=== PATIENT | male | born 1995 | race Caucasian/White ===

== ENCOUNTER 2020-02-05 19:20 | Emergency (ER) | payer OTHER, SELFPAY ==
--- NOTE | ~2020-02-05 | CT_ITS ---
EXAMINATION: CT abdomen pelvis wo con DATE: 02/05/2020 20:07 INDICATION: Right flank pain TECHNIQUE: Computed tomography (CT) of the abdomen and pelvis was performed without intravenous contr ast. The dose-length product (DLP) was 212.95 mGy-cm. Automated exposure control and iterative recons truction technique were employed. COMPARISON: None FINDINGS: The lung bases are clear. The heart size is normal. The liver, spleen, pancreas, gallbladde r, and left adrenal gland are normal. Punctate calcifications of the right adrenal gland likely refle cts prior infection or trauma. The left kidney is unremarkable. There is mild right hydroureteronephr osis with a 1 mm stone seen at the right ureterovesicular junction. A 2 mm nonobstructing stone is pr esent in the right kidney. No pathologically enlarged abdominal or pelvic lymph nodes are identified. There is no free intraperitoneal gas or evidence of bowel obstruction. There is a small fat-containi ng umbilical hernia. There are bilateral L5 pars defects grade 1 anterolisthesis of L5 on S1. IMPRESSION: 1. 1 mm stone at the right ureterovesicular junction causing mild right hydroureteronephrosis. 2. Punctate right nephrolithiasis. Reviewed, dictated and finalized at location A. [employer] IMPRESSION: 1. 1 mm stone at the right ureterovesicular junction causing mild right hydrour eteronephrosis. 2. Punctate right nephrolithiasis.
[2020-02-05 19:21] VITALS: BP 149/70; PULSE 60; RESP 14; TEMP 36.2; O2SAT 100
[2020-02-05 19:39] LABS: Basophils Percent Auto 0.3 % (0.2-1.2); Eosinophils Percent Auto 0.3 % (0-4.4); Hematocrit 41.8 % (42.0-52.0); Hemoglobin 15.2 g/dL (14.0-18.0); Immature Granulocyte Absolute 0.05 K/mm3 (0.00-0.031); Immature Granulocyte Percent A 0.4 % (0-0.5); Lymphocytes Absolute Auto 2.55 K/mm3 (0.9-3.2); Lymphocytes Percent Auto 22.1 % (18.3-44.2); Mean Corpuscular HGB Conc 36.4 g/dl (32-36); Mean Corpuscular Hemoglobin 33.6 pg (26-34); Mean Corpuscular Volume 92.3 fl (80-100); Mean Platelet Volume 10.1 fl (7.4-10.4); Monocytes Absolute Auto 0.8 K/mm3 (0.1-0.6); Monocytes Percent Auto 6.8 % (2.6-8.5); Neutrophils Absolute Auto 8.1 K/mm3 (1.3-6.7); Neutrophils Percent Auto 70.1 % (45.5-73.1); Platelet Count Result 302 k/mm3 (150-375); Red Blood Count 4.53 M/mm3 (4.6-6.20); Red Cell Distribution Width 11.2 % (11.5-14.5); White Blood Count 11.5 K/mm3 (4.5-10.0)
[2020-02-05 19:50] LABS: Anion Gap 13 mmol/L (8-16); Blood Urea Nitrogen 14 mg/dL (9-20); Calcium 9.7 mg/dL (8.4-10.2); Carbon Dioxide 25 mmol/L (22-30); Chloride 102 mmol/L (98-107); Estimated CRCL calculation 74 ml/min; Estimated Glomerular Filt Rate > 60; Glucose 141 mg/dL (75-110); Potassium 3.3 mmol/L (3.4-5.0); Sodium 140 mmol/L (137-145)
[2020-02-05] MEDS: KETOROLAC 30 MG/ML VIAL (*BKC) IV PUSH (20:02)
[2020-02-05] MEDS: SODIUM CHLORIDE 0.9% IV 1,000 ML 999 ML IV CONT (20:02)
[2020-02-05] MEDS: ONDANSETRON INJ 4 MG/2 ML VIAL IV PUSH (20:02)
--- NOTE | 2020-02-05 20:39 | ED.GENADULT ---
HPI - General Adult General Chief complaint: Abdominal Pain Stated complaint: Right flank pain Time Seen by Provider: 02/05/20 19:25 History of Present Illness HPI narrative: Patient is a 24-year-old male who presents ER with sudden onset right flank pain. Radiating around into the right lower quadrant. Has urinary urgency. He is having sweats and nausea as well as vomiting. Has found no alleviating factors. Related Data Allergies Allergy/AdvReac Type Severity Reaction Status Date / Time No Known Allergies Allergy Mild Verified 08/04/10 13:59 Review of Systems Review of Systems: All systems reviewed & are unremarkable except as noted in HPI and below Constitutional: Constitutional: Denies chills, Denies fever(s) and Denies weakness Gastrointestinal: Gastrointestinal: Reports abdominal pain, Denies diarrhea, Reports nausea and Reports vomiting Genitourinary: Genitourinary: Denies hematuria, Denies dysuria and Reports urinary frequency Musculoskeletal: Musculoskeletal: Reports back pain PMFSH Past Medical History Medical History (Updated 02/05/20 @ 21:48 by Richi Guy MD) Healthy adult male Surgical History Surgical History (Updated 02/05/20 @ 20:40 by Richi Guy MD) No history of previous surgery Social History Social History (Updated 02/05/20 @ 21:47 by Richi Guy MD) Tobacco type: e-cigarettes/vaping Exam Narrative: Exam Narrative: GENERAL: Uncomfortable-appearing, well-nourished, and in mild distress. Actively vomiting HEAD: Normocephalic, atraumatic. ENT: Mucous membranes moist. CHEST: Clear to auscultation. No respiratory distress. HEART: Regular rate and rhythm. Normal peripheral pulses. ABDOMEN: Soft, nontender, nondistended. No CVA tenderness EXTREMITIES: Normal range of motion. No edema. SKIN: Warm, dry, no rash. NEURO: Alert and oriented x3. Course Course Emergency Course: Pain markedly improved with Toradol. Informed of results. Discharge home. Vital Signs Vital signs: Vital Signs Temperature 97.2 F L 02/05/20 19:21 Pulse Rate 60 02/05/20 19:21 Respiratory Rate 14 02/05/20 19:21 Blood Pressure 149/70 H 02/05/20 19:21 Pulse Oximetry 100 02/05/20 19:21 Temperature 97.2 F L 02/05/20 19:21 Pulse Rate 60 02/05/20 19:21 Respiratory Rate 14 02/05/20 19:21 Blood Pressure 149/70 H 02/05/20 19:21 Pulse Oximetry 100 02/05/20 19:21 Medical Decision Making Vital Signs Vital Signs: Vital Signs Temperature 97.2 F L 02/05/20 19:21 Pulse Rate 60 02/05/20 19:21 Respiratory Rate 14 02/05/20 19:21 Blood Pressure 149/70 H 02/05/20 19:21 Pulse Oximetry 100 02/05/20 19:21 Temperature 97.2 F L 02/05/20 19:21 Pulse Rate 60 02/05/20 19:21 Respiratory Rate 14 02/05/20 19:21 Blood Pressure 149/70 H 02/05/20 19:21 Pulse Oximetry 100 02/05/20 19:21 Lab Data Result diagrams: 02/05/20 19:33 02/05/20 19:33 Labs: Lab Results 02/05/20 02/05/20 02/05/20 Range/Units 19:33 19:33 21:28 WBC 11.5 H (4.5-10.0) K/mm3 RBC 4.53 L (4.6-6.20) M/mm3 Hgb 15.2 (14.0-18.0) g/dL Hct 41.8 L (42.0-52.0) % MCV 92.3 (80-100) fl MCH 33.6 (26-34) pg MCHC 36.4 H (32-36) g/dl RDW 11.2 L (11.5-14.5) % Plt Count 302 (150-375) k/mm3 MPV 10.1 (7.4-10.4) fl Immature Gran % (Auto) 0.4 (0-0.5) % Neut % (Auto) 70.1 (45.5-73.1) % Lymph % (Auto) 22.1 (18.3-44.2) % [place] % (Auto) 6.8 (2.6-8.5) % Eos % (Auto) 0.3 (0-4.4) % Baso % (Auto) 0.3 (0.2-1.2) % Lymph # (Auto) 2.55 (0.9-3.2) K/mm3 [place] # (Auto) 0.8 H (0.1-0.6) K/mm3 Eos # (Auto) 0.0 (0-0.3) K/mm3 Baso # (Auto) 0.0 (0.0-0.1) K/mm3 Abs Immat Gran (auto) 0.05 H (0.00-0.031) K/mm3 Absolute Neuts (auto) 8.1 H (1.3-6.7) K/mm3 Absolute Nucleated RBC 0.0 (0.0-0.012) K/mm3 Nucleated RBC % 0.0 (0.0-0.2) % Sodium 140 (137-145) mm
[2020-02-05 21:37] LABS: Add Urine Microscopic? YES; Appearance Urine Clear (Clear); Bilirubin Urine Negative (Negative); Blood Urine 3+ (Negative); Color Urine Yellow (Yellow); Glucose Urine UA Negative (Negative); Ketones Urine Negative (Negative); Leukocyte Esterase Ur Negative LEU/UL (Negative); Mucus Urine Heavy /lpf; Nitrate Urine Negative (Negative); Protein Urine 1+ mg/dL (Negative); RBC Urine 21-50 /hpf (0-2); Specific Grav Ur 1.021 (1.001-1.035); Urobilinogen Urine Negative mg/dL (<2.0)
[2020-02-05 21:59] VITALS: BP 138/70; PULSE 80; RESP 18; O2SAT 99
== END 2020-02-05 22:00 | disposition home or self-care (01) ==
PROVIDERS: Emergency Provider Emergency Medicine
DX: N13.2 Hydronephrosis with renal and ureteral calculous obstruction (principal)
CPT/HCPCS: 36415; 74176; 80048; 81001; 85025; 96361; 96374; 96375; 99284; J1885; J2405; J7030

== ENCOUNTER 2020-07-18 16:48 | Emergency (ER) | payer OTHER, SELFPAY ==
--- NOTE | ~2020-07-18 | XR_ITS ---
EXAMINATION: XR abdomen/kub 1V INDICATION: Constipation TECHNIQUE: Supine views of the abdomen were obtained on 2 radiographs. COMPARISON: CT, 02/05/2020 FINDINGS: There is a moderate volume of colonic stool. No dilated loops of bowel are evident. The vis ualized lung bases are clear. The osseous structures are unremarkable. IMPRESSION: 1. Moderate volume of colonic stool. Reviewed, dictated and finalized at location A.
[2020-07-18 17:14] VITALS: BP 104/77; PULSE 73; RESP 13; TEMP 36.8; O2SAT 100
[2020-07-18 17:33] LABS: Basophils Percent Auto 0.8 % (0.2-1.2); Eosinophils Percent Auto 0.8 % (0-4.4); Hematocrit 42.9 % (42.0-52.0); Hemoglobin 15.5 g/dL (14.0-18.0); Immature Granulocyte Absolute 0.02 K/mm3 (0.00-0.031); Immature Granulocyte Percent A 0.4 % (0-0.5); Lymphocytes Absolute Auto 1.98 K/mm3 (0.9-3.2); Lymphocytes Percent Auto 39.8 % (18.3-44.2); Mean Corpuscular HGB Conc 36.1 g/dl (32-36); Mean Corpuscular Hemoglobin 33.3 pg (26-34); Mean Corpuscular Volume 92.1 fl (80-100); Mean Platelet Volume 9.6 fl (7.4-10.4); Monocytes Absolute Auto 0.5 K/mm3 (0.1-0.6); Neutrophils Absolute Auto 2.4 K/mm3 (1.3-6.7); Neutrophils Percent Auto 48.2 % (45.5-73.1); Platelet Count Result 240 k/mm3 (150-375); Red Blood Count 4.66 M/mm3 (4.6-6.20)
[2020-07-18 17:46] LABS: Alanine Aminotransferase 24 U/L (4-50); Alkaline Phosphatase 73 U/L (38-126); Anion Gap 9 mmol/L (8-16); Aspartate Amino Transferase 29 U/L (17-59); Bilirubin,Total 0.9 mg/dL (0.2-1.3); Blood Urea Nitrogen 13 mg/dL (9-20); Carbon Dioxide 29 mmol/L (22-30); Chloride 101 mmol/L (98-107); Estimated CRCL calculation 118 ml/min; Estimated Glomerular Filt Rate > 60; Glucose 91 mg/dL (75-110); Lipase 54 U/L (23-300); Potassium 4.4 mmol/L (3.4-5.0); Sodium 139 mmol/L (137-145)
[2020-07-18 17:54] LABS: Add Urine Microscopic? YES; Appearance Urine Clear (Clear); Bilirubin Urine Negative (Negative); Blood Urine Negative (Negative); Color Urine Yellow (Yellow); Glucose Urine UA Negative (Negative); Ketones Urine Negative (Negative); Leukocyte Esterase Ur Negative LEU/UL (Negative); Mucus Urine Rare /lpf; Nitrate Urine Negative (Negative); Protein Urine 1+ mg/dL (Negative); RBC Urine 0-2 /hpf (0-2); Specific Grav Ur 1.017 (1.001-1.035); Urobilinogen Urine Negative mg/dL (<2.0); WBC Urine 0-3 /hpf
--- NOTE | 2020-07-18 17:56 | ED.ABDPAIN ---
HPI - Abdominal Pain General Chief Complaint: Abdominal Pain <Lizy Ocampo PA-C - Last Filed: 07/18/20 19:08> Stated Complaint: Abd Pain <Lizy Ocampo PA-C - Last Filed: 07/18/20 19:08> Time Seen by Provider: 07/18/20 17:29 <Lizy Ocampo PA-C - Last Filed: 07/18/20 19:08> Source: patient <Lizy Ocampo PA-C - Last Filed: 07/18/20 19:08> Mode of arrival: ambulatory <Lizy Ocampo PA-C - Last Filed: 07/18/20 19:08> Limitations: no limitations <Lizy Ocampo PA-C - Last Filed: 07/18/20 19:08> History of Present Illness HPI narrative: This is a 24 year old male that presents to the ER for constipation for the last 5 days. Does report history of hemorrhoids. Reports he will feel like he needs to have a bowel movement and is unable to at times. His last bowel movement was today and he reports it was normal. Denies fever, abdominal pain, nausea, vomiting, dysuria, hematuria, or hematochezia. <Lizy Ocampo PA-C - Last Filed: 07/18/20 19:08> Related Data Allergies/Adverse Reactions: Allergies Allergy/AdvReac Type Severity Reaction Status Date / Time No Known Allergies Allergy Mild Verified 07/18/20 17:29 <Lizy Ocampo PA-C - Last Filed: 07/18/20 19:08> Review of Systems Review of Systems: Narrative: CONSTITUTIONAL: Denies fever GASTROINTESTINAL: Denies abdominal pain, nausea, vomiting, or diarrhea. GENITOURINARY: Denies dysuria or hematuria. <Lizy Ocampo PA-C - Last Filed: 07/18/20 19:08> All systems reviewed & are unremarkable except as noted in HPI and below <Lizy Ocampo PA-C - Last Filed: 07/18/20 19:08> PMFSH Past Medical History Medical History: Medical History (Updated 07/18/20 @ 19:05 by Lizy Ocampo PA-C) Healthy adult male <Lizy Ocampo PA-C - Last Filed: 07/18/20 19:08> Surgical History Surgical History: Surgical History (Updated 02/05/20 @ 20:40 by Richi Guy MD) No history of previous surgery <Lizy Ocampo PA-C - Last Filed: 07/18/20 19:08> Social History Social History: Social History (Updated 02/05/20 @ 21:47 by Richi Guy MD) Tobacco type: e-cigarettes/vaping Gender identity (if verbalized by the patient): Male <Lizy Ocampo PA-C - Last Filed: 07/18/20 19:08> Exam Narrative: Exam Narrative: GENERAL: Well-appearing, well-nourished, and in no acute distress. HEAD: Normocephalic, atraumatic. EYES: EOMI. CHEST: Clear to auscultation. No respiratory distress. No wheezes rales or rhonchi HEART: Regular rate and rhythm. No murmur heard. Normal peripheral pulses. ABDOMEN: Soft, nontender, nondistended, normal active bowel sounds. No CVA tenderness EXTREMITIES: Normal range of motion. No edema. SKIN: Warm, dry, no rash. NEURO: No focal deficits. Alert and oriented x3. PSYCH: Normal mood and affect RECTAL: Normal appearing rectum, Hemoccult negative <Lizy Ocampo PA-C - Last Filed: 07/18/20 19:08> Course Vital Signs Vital signs: Vital Signs Temperature 98.2 F 07/18/20 17:14 Pulse Rate 73 07/18/20 17:14 Respiratory Rate 13 07/18/20 17:14 Blood Pressure 104/77 07/18/20 17:14 Pulse Oximetry 100 07/18/20 17:14 Temperature 98.2 F 07/18/20 17:14 Pulse Rate 73 07/18/20 17:14 Respiratory Rate 13 07/18/20 17:14 Blood Pressure 104/77 07/18/20 17:14 Pulse Oximetry 100 07/18/20 17:14 <Lizy Ocampo PA-C - Last Filed: 07/18/20 19:08> Vital Signs Temperature 98.2 F 07/18/20 17:14 Pulse Rate 73 07/18/20 17:14 Respiratory Rate 13 07/18/20 17:14 Blood Pressure 104/77 07/18/20 17:14 Pulse Oximetry 100 07/18/20 17:14 Temperature 98.2 F 07/18/20 17:14 Pulse Rate 73 07/18/20 17:14 Respiratory Rate 13 07/18/20 17:14 Blood Pressure 104/77 07/18/20 17:14 Pulse Oximetry 100 07/18/20 17:14 <Maida Broussard MD - Last Filed: 07/18/20 19:09> MDM - Abdominal Pain MDM Narrati
[2020-07-18 19:32] VITALS: BP 142/84; PULSE 78; RESP 16; O2SAT 99
== END 2020-07-18 19:32 | disposition home or self-care (01) ==
PROVIDERS: Emergency Medicine; Emergency Provider General Practice
DX: K59.00 Constipation, unspecified (principal); F17.290 Nicotine dependence, other tobacco product, uncomplicated
CPT/HCPCS: 36415; 74018; 80053; 81001; 83690; 85025; 99283

== ENCOUNTER 2022-03-25 13:35 | Emergency (ER) | payer OTHER, SELFPAY ==
--- NOTE | ~2022-03-25 | CT_ITS ---
EXAMINATION: CT abdomen pelvis wo con DATE: 03/25/2022 15:20 INDICATION: Right flank pain. TECHNIQUE: Computed tomography (CT) of the abdomen and pelvis was performed without intravenous contr ast. Automated exposure control and iterative reconstruction technique were employed. The dose-length product was 345.83 mGy-cm. COMPARISON: CT abdomen and pelvis 02/05/2020 FINDINGS: The visualized portions of the lung bases are clear without pneumonia or pleural effusion. The heart size is normal. No pericardial effusion. The liver, gallbladder, spleen, pancreas, adrenal glands, and left kidney are normal. There is a 3 mm stone in right kidney. There are no dilated loops of bowel. The appendix is normal. There is an umbilical hernia containing fat. There are no patholog ically enlarged lymph nodes. There is no free intraperitoneal fluid. There are chronic bilateral L4 a nd L5 pars defects. There is 4 mm anterolisthesis of L5 on S1. IMPRESSION: 1. 3 mm nonobstructing right kidney stone. 2. Umbilical hernia containing fat. Reviewed, dictated and finalized at location A. [employer]
[2022-03-25 13:41] VITALS: BP 110/49; PULSE 58; RESP 16; TEMP 36.1; O2SAT 100
--- NOTE | 2022-03-25 13:56 | ED.BACK ---
HPI - Back Pain/Injury General Chief Complaint: Back Pain/Injury Stated Complaint: left flank pain Time Seen by Provider: 03/25/22 13:39 History of Present Illness HPI Narrative: 26-year-old male presents to the emergency room for evaluation of right lower back pain for 1 month. Patient states the pain is intermittent, worse when he stands. Has taken ibuprofen several occasions with some relief. Does have a history of kidney stones 2 years ago states the pain is similar. Denies pain with rotation or lateral bend. Denies urinary retention, hematuria. Denies injury or trauma. Denies saddle anesthesia. Denies radicular pain. Denies changes to bowel or bladder habits. Related Data Allergies Allergy/AdvReac Type Severity Reaction Status Date / Time No Known Allergies Allergy Mild Verified 07/18/20 17:29 Review of Systems Review of Systems: CONSTITUTIONAL: Denies fever, chills, or sweats. EYES: Denies visual changes, redness, or discharge. ENT: Denies rhinorrhea, congestion, sore throat, or otalgia. CARDIOVASCULAR: Denies chest pain, palpitations, or edema. RESPIRATORY: Denies cough or dyspnea. GASTROINTESTINAL: Denies abdominal pain, nausea, vomiting, or diarrhea. GENITOURINARY: Denies dysuria or hematuria. SKIN: Denies rash or itching. MUSCULOSKELETAL: Reports low back pain NEUROLOGIC: Denies headache, numbness, dizziness, or weakness. PSYCHIATRIC: Denies anxiety or depression. [facility] Past Medical History Medical History Healthy adult male Surgical History Surgical History No history of previous surgery Social History Social History Tobacco type: e-cigarettes/vaping Gender identity (if verbalized by the patient): Male Exam Narrative: GENERAL: Well-appearing, well-nourished, no physical limitations, and in no acute distress. HEAD: Normocephalic, atraumatic. EYES: Conjunctivae normal, PERRLA and EOMI. CHEST: Clear to auscultation. No respiratory distress. No wheezes rales or rhonchi. HEART: Regular rate and rhythm. No murmur heard. Normal peripheral pulses. BACK: No CVA tenderness; No midline lumbar tenderness, step-offs, bony abnormality; FROM. Tenderness to right lower paralumbar muscles EXTREMITIES: Normal range of motion. No edema. No clubbing or cyanosis SKIN: Warm, dry, no rash. No noted wounds NEURO: No focal deficits. Alert and oriented x3. MAEW. CN's II-XI intact bilaterally, normal gait PSYCH: Cooperative. Normal mood and affect. Course Vital Signs Vital signs: Vital Signs Temperature 36.1 C L 03/25/22 13:41 Pulse Rate 58 L 03/25/22 13:41 Respiratory Rate 16 03/25/22 13:41 Blood Pressure 110/49 L 03/25/22 13:41 Pulse Oximetry 100 03/25/22 13:41 Temperature 36.1 C L 03/25/22 13:41 Pulse Rate 58 L 03/25/22 13:41 Respiratory Rate 16 03/25/22 13:41 Blood Pressure 110/49 L 03/25/22 13:41 Pulse Oximetry 100 03/25/22 13:41 MDM - Back Pain/Injury MDM Narrative Medical decision making narrative: 26-year-old male history kidney stones presented the emergency room with right lower back pain. Patient was concerned that he might have an obstructing kidney stone. CT scan shows no evidence of obstructing kidney stone. Patient likely can experiencing lumbar strain. We will send patient home with methocarbamol. Lab Data Labs: Lab Results 03/25/22 Range/Units 14:29 Urine Color Yellow (Yellow) Urine Appearance Slightly cloudy (Clear) Urine pH 6.0 (5.0-9.0) Ur Specific [place] >= 1.030 (1.001-1.035) Urine Protein Trace (Negative) mg/dL Urine Glucose (UA) Negative (Negative) mg/dL Urine Ketones Negative (Negative) mg/dL Ur Blood (Man) 1+ H (Negative) Urine Nitrate Negative (Negative) Urine Bilirubin 1+ H (Negative) Urine Urobilinogen 0.2 (<2.0) mg/dL Leuk
[2022-03-25 15:06] LABS: Appearance Urine Slightly Cloudy (Clear); Bilirubin Urine 1+ (Negative); Blood Urine 1+ (Negative); Color Urine Yellow (Yellow); Glucose Urine UA Negative (Negative); Ketones Urine Negative (Negative); Leukocyte Esterase Ur Negative LEU/UL (Negative); Nitrate Urine Negative (Negative); Protein Urine Trace mg/dL (Negative); Specific Grav Ur >= 1.030 (1.001-1.035); Urobilinogen Urine 0.2 mg/dL (<2.0)
[2022-03-25 15:18] LABS: Add Urine Microscopic? YES; Bacteria Urine Trace /hpf; Mucus Urine Heavy /lpf; Squamous Epithelial Cell Urine Occasional /hpf (Few)
== END 2022-03-25 16:17 | disposition home or self-care (01) ==
PROVIDERS: Emergency Provider Nurse Practitioner Family
DX: S39.012A Strain of muscle, fascia and tendon of lower back, initial encounter (principal); X58.XXXA Exposure to other specified factors, initial encounter
CPT/HCPCS: 74176; 81001; 99284

== ENCOUNTER 2022-07-15 13:02 | Outpatient (CLI) | payer OTHER, SELFPAY ==
--- NOTE | ~2022-07-15 | XR_ITS ---
XR lumbar spine 2-3V 07/15/2022 13:26 Indication: Back pain Procedure: 3 views lumbar spine Comparison: No prior studies for comparison. Findings: There is grade 1 spondylolisthesis at L5-S1 secondary to spondylolysis. Vertebral body heig hts are maintained. No acute fracture or traumatic malalignment. No significant disc narrowing. Impression: 1: Grade 1 spondylolisthesis at L5-S1 secondary to spondylolysis. Reviewed, dictated and finalized at location B. Impression: 1: Grade 1 spondylolisthesis at L5-S1 secondary to spondylolysis.
--- NOTE | ~2022-07-15 | XR_ITS ---
EXAMINATION: XR thoracic spine 3V DATE: 07/15/2022 13:26 INDICATION: Thoracic back pain. TECHNIQUE: 3 views of thoracic spine were obtained. COMPARISON: None. FINDINGS: Bone alignment is normal. Vertebral body heights are normal. There are Schmorl's nodes at m ultiple levels. There is mildly decreased disc height at T4-T5. IMPRESSION: 1. Mild thoracic spondylosis. Reviewed, dictated and finalized at location A.
== END 2022-07-15 13:03 | disposition home or self-care (01) ==
PROVIDERS: PCP Physician Assistant; Visit Provider Physician Assistant
DX: M47.894 Other spondylosis, thoracic region (principal); M47.896 Other spondylosis, lumbar region
CPT/HCPCS: 72072; 72100